=== PATIENT | female | born 1935 | race Caucasian/White ===

== ENCOUNTER → 2017-01-03 | Outpatient (CLI) | payer MEDICARE, OTHER ==
--- NOTE | 2017-01-04 08:54 | CT ---
EXAM DESCRIPTION: CT CHEST WITH IV CONTRAST CLINICAL HISTORY: PULMONARY NODULE COMPARISON: CTA neck October 11, 2016 TECHNIQUE: Post-contrast CT images of the chest are obtained. CT scan done according to ALARA (As Low As Reasonably Achievable). FINDINGS: The heart shows mild coronary artery calcifications. Mild scattered calcified plaque of the thoracic aortic arch and descending aorta are seen without aneurysmal dilatation or obvious dissection. No pathologically enlarged mediastinal, hilar, or axillary lymphadenopathy is seen. There are small calcified lymph nodes in the hilum bilaterally. Visualized portion of the upper abdomen shows calcifications in the liver and spleen. The adrenal glands are unremarkable. Fluid attenuation cortical cysts are incompletely visualized on both kidneys measuring maximum 1.8 cm on the upper pole left kidney. All lungs are normally aerated. Multiple small calcified pulmonary nodules are seen throughout the lungs. There is a 5 mm noncalcified pulmonary nodule in the right lung apex is seen on previous CT scan. There are multiple noncalcified pulmonary nodules in the lower chest measuring 9 mm in the anterior right middle lobe, 10 mm in the anterior mid left lower lobe, and 9 mm in the posterior left lung base. Several smaller noncalcified pulmonary nodules are seen throughout the lungs bilaterally. Osseous structures show no aggressive bony lesions. Moderate degenerative changes of the thoracic spine are seen. The focal nonspecific calcification below the left hemidiaphragm is seen measuring 18 mm. IMPRESSION: Multiple noncalcified pulmonary nodules are seen throughout the lungs measuring up to 10 mm greatest diameter. These are indeterminate, but concerning for possible metastatic disease. Consider tissue sampling of a nodule if possible. As per Fleischner Society guidelines for follow-up and management of pulmonary nodules: Recommend initial follow-up chest CT at 3, 9 and 24 months. Consider contrast enhanced chest CT, PET scan and/or biopsy as clinically warranted. Multiple calcified pulmonary nodules are seen suggesting old granulomatous disease. Other findings as described in body of the report. Electronically signed by: Joaquin Villalobos MD 01/04/2017 08:51
== END | disposition home or self-care (01) ==
LOC: CT 09:14
PROVIDERS: ATTEND Family Medicine
DX: R91.1 Solitary pulmonary nodule (principal)

== ENCOUNTER → 2017-01-11 | Outpatient (CLI) | payer MEDICARE, OTHER | LOC: GMAM 10:56 | PROVIDERS: ATTEND Family Medicine | DX: E03.9 Hypothyroidism, unspecified (principal); R31.29 Other microscopic hematuria; I10 Essential (primary) hypertension; E11.9 Type 2 diabetes mellitus without complications; E53.8 Deficiency of other specified B group vitamins ==

== ENCOUNTER → 2017-04-28 | Outpatient (CLI) | payer MEDICARE, OTHER | END | disposition home or self-care (01) | LOC: GMAM 10:34 | PROVIDERS: ATTEND Family Medicine | DX: E53.8 Deficiency of other specified B group vitamins (principal); I10 Essential (primary) hypertension; E03.9 Hypothyroidism, unspecified ==

== ENCOUNTER → 2017-05-24 | Outpatient (CLI) | payer MEDICARE, OTHER ==
--- NOTE | 2017-05-24 22:26 | MRI ---
MRI left shoulder without contrast INDICATION: Shoulder pain x1 week status post moving injury continuous pain initial encounter TECHNIQUE: Noncontrast MR imaging left shoulder standard protocol FINDINGS: There is interstitial fissuring and tendinosis with flattening and fraying long head bicep. No complete rupture or dislocation. There is tendinosis fissuring and fraying of the distal subscapularis without complete rupture or retraction. Moderate hypertrophic AC joint osteoarthrosis. No advanced glenohumeral arthrosis. There is diffuse labral fraying especially superiorly. There is also mild capsular thickening. There is diffuse moderate subacromial and subdeltoid bursitis. Minimal grade 1 marbling of the rotator cuff muscle bellies without advanced arthrosis. There is a focal full-thickness tear of the anterior supraspinatus near the rotator interval. The tear measures approximately 10 mm in AP dimension by about 11 mm in length. There is also mild interstitial delamination extending posteriorly and medially from this. IMPRESSION: Focal full-thickness tear anterior supraspinatus with mild retraction with mild interstitial delamination extending posteriorly and medially Tendinosis and interstitial fissuring of the subscapularis Interstitial fissuring and fraying long head bicep Subacromial and subdeltoid bursitis Moderate hypertrophic AC joint osteoarthrosis Diffuse labral degeneration and fraying especially superiorly without detachment of the biceps labral anchor No advanced muscle atrophy. Electronically signed by: Jose Perdue MD 05/24/2017 10:25 PM CDT
== END | disposition home or self-care (01) ==
LOC: MRI 08:53
PROVIDERS: ATTEND Family Medicine
DX: M25.512 Pain in left shoulder (principal)

== ENCOUNTER → 2017-07-18 | Outpatient (CLI) | payer MEDICARE, OTHER ==
--- NOTE | 2017-07-18 09:24 | CT ---
EXAM DESCRIPTION: Chest w/o Contrast CLINICAL HISTORY: 81 years, Female, MULTIPLE NODULES OF LUNG AND CHRONIC COUGH COMPARISON: January 03, 2017 TECHNIQUE: Thin-section noncontrast axial CT images are obtained according to our protocol. Reconstructed MPR images are created and reviewed as well. This exam was performed according to our departmental dose-optimization program, which includes automated exposure control, adjustment of the mA and/or kV according to patient size and/or use of iterative reconstruction technique. FINDINGS: Noncontrast imaging of the chest again demonstrates multiple bilateral pulmonary nodules that are stable and unchanged from previously study January 03, 2017. The nodules are noncalcified except for a tiny 2 mm left apical subpleural calcified nodule as well as granulomatous calcifications within the liver and adjacent to the spleen in a subdiaphragmatic location. The bilateral pulmonary nodules predominantly range between two and 8 mm in size with no new nodules are identified or significant interval enlargement in the 6 1/2 month interval since prior study. A tiny 2 mm calcified granuloma in the posterior right lung base is also noted. With the lack of interval change old granulomatous disease is most strongly suspected but with the multiple bilateral pulmonary nodules continued follow-up with repeat imaging in six additional months to confirm one year of stability with follow-up one year beyond that for two full years of stability is recommended. Soft tissue structures in the subdiaphragmatic region are unremarkable. A small retrocardiac hiatal hernia is present. The thoracic inlet and superior mediastinum are unremarkable. No definite hilar adenopathy is noted. Extensive aortic calcification is present with very little coronary calcification noted. IMPRESSION: 1. Stable multiple noncalcified bilateral discrete pulmonary nodules ranging between approximately two and 8 mm in size without increase in size or number since prior December study. At least one small 2 mm calcified tiny granuloma in each lung field is also noted as well as granulomatous calcifications within the liver and subdiaphragmatic regions. 2. With stability over a 6 1/2 month. Noncalcified granulomas are thought most likely but continued follow-up with repeat imaging in six additional months and one year after that to obtain 2 full years of stability recommended. 3. No abnormal soft tissue masses or new abnormalities noted. Electronically signed by: Josue Pierson MD 07/18/2017 9:23 AM CDT
== END | disposition home or self-care (01) ==
LOC: CT 08:09
PROVIDERS: ATTEND Internal Medicine
DX: J98.4 Other disorders of lung (principal)

== ENCOUNTER 2017-08-04 16:16 | Emergency (ER) | payer MEDICARE, OTHER ==
[2017-08-04 16:45] VITALS: BP 124/71; TEMP 98.9; O2SAT 96
--- NOTE | 2017-08-04 16:48 | ED.PDOC ---
History of Present Illness - General Chief Complaint: General Stated Complaint: fall Time Seen by Provider: 08/04/17 16:37 Source: patient Exam Limitations: no limitations - History of Present Illness Initial Comments: Monica Enriquez 81 y/o female stated that she fell while going up the steps last night and she had some pain on her left ribcage back and left shoulder stating she had rotator cuff tear and has chronic shoulder pain.Stated steps are narrow.Denies head ,neck ,hip pain.Patient was told by daughter to get checked. Occurred: yesterday Severity: mild Injuries/Pain Location: no injury, other - bearable pain Reason for Fall: lost balance Loss of Consciousness: no loss of consciousness Improving Factors: nothing Worsening Factors: nothing Associated Symptoms (Fall): denies symptoms Allergies/Adverse Reactions: Allergies Meperidine [From Demerol HCl] Allergy (Verified 08/04/17 16:45) Sulfa Antibiotics Allergy (Verified 08/04/17 16:45) Home Medications: Ambulatory Orders Aspirin [Aspirin Adult Low Dose] 81 mg PO DAILY 08/04/17 Esomeprazole Magnesium [Nexium] 40 mg PO DAILY 08/04/17 Ezetimibe-Simvastatin [Vytorin 10-80 mg] 1 tab PO DAILY 08/04/17 Glipizide 5 mg PO DAILY 08/04/17 Insulin Glargine [Lantus Solostar] 45 unit SC BEDTIME 08/04/17 Levothyroxine Sodium [Synthroid] 137 mcg PO DAILY 08/04/17 Metformin HCl 1,000 mg PO DAILY 08/04/17 Metformin HCl 500 mg PO BEDTIME 08/04/17 Metoprolol Tartrate 25 mg PO BID 08/04/17 Review of Systems - Review of Systems Constitutional: States: no symptoms reported EENTM: States: no symptoms reported Respiratory: States: see HPI Cardiology: States: no symptoms reported Gastrointestinal/Abdominal: States: no symptoms reported Musculoskeletal: States: see HPI Skin: States: no symptoms reported Past Medical History (General) - Patient Medical History Hx MRSA: Yes - Buttock Wound 2013, Genital Wound 2014 MRSA Source:: Wound - Social History Hx Physical Abuse: No Hx Emotional Abuse: No Hx Suspected Abuse: No - Activities of Daily Living Patient Lives Alone: Yes Grooming Ability: Independent Eating (Feeding) Ability: Independent Toileting Ability: Independent Physical Exam - Physical Exam General Appearance: Alert, No apparent distress Head Injury: no evidence of injury Eye Exam: bilateral normal ENT Exam: hearing grossly normal, no evidence of ENT injury, no dental injury Peripheral Pulses: radial,right: 1+, radial,left: 1+ Cardiovascular/Respiratory: regular rate, rhythm, normal peripheral pulses, normal breath sounds, no respiratory distress, other - no chest wall tenderness Gastrointestinal/Abdominal: non tender, soft, no organomegaly Extremity Exam: no evidence of injury, normal range of motion - left shoulder rom full flexion /extension and internal/external rotation Neurologic: no motor/sensory deficits, alert, normal mood/affect, oriented x 3 Skin Exam: normal color, warm/dry, other - no signs of external injuries - David Coma Score Best Eye Response (David): (4) open spontaneously Best Verbal Response ([place]): (5) oriented Best Motor Response (David): (6) obeys commands [place] Total: 15 Progress - Progress Progress: 08/04/17 16:59 Vital Signs - 8 hr 08/04/17 16:40 Temperature 98.9 F Pulse Rate [ 81 Left Brachial] Respiratory 20 Rate Blood Pressure 124/71 [Left Arm] O2 Sat by Pulse 96 Oximetry Departure - Departure Clinical Impression: Fall (on) (from) other stairs and steps, initial encounter, Pain of left upper extremity Time of Disposition: 17:01 Disposition: Discharge to Home or Self Care Condition: Fair Instructions: How to Prevent Falls, Milad Chi May Improve Physical Function, Reduce Falls Referrals: Josue Anderson MD [Primary Care Provider] - 1-2 Weeks Home Medications: Ambulatory Orders Aspirin [Aspirin Adult Low Dose] 81 mg PO DAILY 08/04/17 Esomeprazole Magnesium [Nexium] 40 mg PO DAILY 08/04/17 Ezetimibe-Simvastatin [Vytorin 10-80 mg] 1 tab PO DAILY 08/04/17 Glipizide 5 mg PO DAILY 08/04/17 Insulin Glargine [Lantus Solostar] 45 unit SC BEDTIME 08/04/17 Levothyroxine Sodium [Synthroid] 137 mcg PO DAILY 08/04/17 Metformin HCl 1,000 mg PO DAILY 08/04/17 Metformin HCl 500 mg PO BEDTIME 08/04/17 Metoprolol Tartrate 25 mg PO BID 08/04/17 Additional Instructions: Tylenol 500 mg (over the counter) one tablet by mouth 3 x a day as needed for pain;RETURN TO EMERGENCY ROOM NEEDED
== END 2017-08-04 17:10 | disposition home or self-care (01) ==
LOC: ER 16:16
DX: M25.512 Pain in left shoulder (principal); G89.29 Other chronic pain; Z86.14 Personal history of Methicillin resistant Staphylococcus aureus infection; Z79.4 Long term (current) use of insulin; Z79.82 Long term (current) use of aspirin; Z88.2 Allergy status to sulfonamides; Z88.8 Allergy status to other drugs, medicaments and biological substances

== ENCOUNTER → 2017-08-18 | Outpatient (CLI) | payer MEDICARE, OTHER | END | disposition home or self-care (01) | LOC: GMAM 14:14 | PROVIDERS: ATTEND Family Medicine | DX: E53.8 Deficiency of other specified B group vitamins (principal); E11.9 Type 2 diabetes mellitus without complications; I10 Essential (primary) hypertension; E03.9 Hypothyroidism, unspecified ==

== ENCOUNTER → 2017-12-20 | Outpatient (CLI) | payer MEDICARE, OTHER | LOC: GMAM 14:46 | PROVIDERS: ATTEND Family Medicine | DX: E03.9 Hypothyroidism, unspecified (principal); E53.8 Deficiency of other specified B group vitamins ==

== ENCOUNTER → 2018-04-26 | Outpatient (CLI) | payer MEDICARE, OTHER | LOC: GMAM 10:35 | PROVIDERS: ATTEND Family Medicine | DX: E53.8 Deficiency of other specified B group vitamins (principal); E03.9 Hypothyroidism, unspecified ==

== ENCOUNTER → 2018-07-27 | Outpatient (CLI) | payer MEDICARE, OTHER ==
--- NOTE | 2018-07-27 16:29 | CT ---
EXAM DESCRIPTION: Chest w/o Contrast : Computed Tomography. CLINICAL HISTORY: CHRONIC COUGH following pulmonary nodules. COMPARISON: CT scan of the chest and thorax without IV contrast 07/18/2017. TECHNIQUE: Spiral-axial scans at 5.0 x 5.0 mm intervals through the lungs and thorax without IV contrast. 2.5 mm lung algorithm axial reconstructions. Coronal and sagittal 2.0 Mm reconstructions. Total Exam DLP: 502.41 mGy-cm. This exam was performed according to our departmental dose-optimization program which includes automated exposure control, adjustment of the mA and/or kV according to patient size and/or use of iterative reconstruction technique; to reduce radiation dose to as low as reasonably achievable (ALARA). FINDINGS: Nodule in the anterior aspect of the base of the right lower lobe with mean diameter 7 mm and lobulated and partially spiculated margins. Axial sequence 4, images 68-70. 4 smaller nodules posterior and superior to this nodule in the subpleural region, images 65-67. The nodules are stable in size since the prior study. Other nodules approximately 2 mm diameter are present in the subpleural lateral lower lobe. 7 mm nodules with lobulated and spiculated margins can be seen on images 89-92 in the lower left lobe recess. These are also stable. Subpleural nodules less than 4 mm mean diameter are seen in several locations in the right lower lobe and are stable since the prior study. The largest is on image 83. 5 mm solid subpleural nodule in the medial right apex on image 16 is stable. Contralateral calcified subpleural nodule lateral left upper lobe on image 19 is unchanged. Stable subpleural solid nodule posterior right upper lobe on image 27, less than 4 mm diameter. 8 mm mean diameter solid nodule with smooth lobulated and spiculated margins in the subpleural anterior right middle lobe on image 54 through 56 is unchanged. Bilateral apical pleural thickening. 2.5 mm solid nodule in the posterior left upper lobe near the major fissure on image 35 is stable. Other smaller subpleural solid nodules in the left upper lobe are stable. Evaluation of soft tissues limited due to lack of IV contrast. Atherosclerotic calcifications of the great vessels. Coronary artery calcifications. No large soft tissue masses mediastinum or hilum. No chest wall masses axilla and chest wall. Normal size and density of adrenal glands spleen are stable large calcification lateral left diaphragm. Arterial calcifications. Gallbladder partially visualized. No free fluid or free air in the peritoneum. At least 3 cystic lesions partially visualized in the left kidney and 2 on the right. Schmorl's node in the superior T10 endplate and spondylosis in the T9-10 disc space has developed since the prior study with bilateral foraminal narrowing. No lytic or blastic lesions in the included osseous structures. IMPRESSION: 1. Bilateral stable nodular lesions and calcified granulomas in the lung walsh. Stability over 12 month.. No new nodules masses or infiltrates. Considering 2017 Fleischner Society guidelines for multiple nodules, recommend 12-[address] scan follow-up. Please see below.* 2. Stable soft tissues in the chest and upper abdomen. Bilateral renal cysts again noted. *2017 Fleischner Society Recommendations for Multiple Solid Lung Nodules Follow-Up base on size (average of long- and short-axis diameters). Use most suspicious nodule for followup. Nodule Size <6 mm Low-Risk Patient: No routine follow-up Nodule Size <6 mm High-Risk Patient: Optional CT at 12 months Nodule Size 6-8 mm Low-Risk Patient: CT at 3-[address] at 18-24 months Nodule Size 6-8 mm High-Risk Patient: CT at 3-6 months then at 18-24 months Electronically signed by: Fish Sharma MD 07/27/2018 4:27 PM CDT
== END ==
LOC: CT 10:00
PROVIDERS: ATTEND Nurse Practitioner Family
DX: J30.9 Allergic rhinitis, unspecified (principal); J98.4 Other disorders of lung; R05 Cough

== ENCOUNTER → 2018-07-31 | Outpatient (CLI) | payer MEDICARE, OTHER | LOC: GMAM 14:15 | PROVIDERS: ATTEND Family Medicine | DX: E53.8 Deficiency of other specified B group vitamins (principal); E03.9 Hypothyroidism, unspecified ==

== ENCOUNTER → 2018-11-08 | Outpatient (CLI) | payer MEDICARE, OTHER | LOC: GMAM 12:10 | PROVIDERS: ATTEND Family Medicine | DX: E53.8 Deficiency of other specified B group vitamins (principal); E03.9 Hypothyroidism, unspecified ==

== ENCOUNTER → 2018-12-14 | Outpatient (CLI) | payer MEDICARE, OTHER | LOC: GMAM 11:02 | PROVIDERS: ATTEND Family Medicine | DX: E03.9 Hypothyroidism, unspecified (principal) ==

== ENCOUNTER → 2019-06-21 | Outpatient (CLI) | payer MEDICARE, OTHER | LOC: GMAM 10:28 | PROVIDERS: ATTEND Family Medicine | DX: E53.8 Deficiency of other specified B group vitamins (principal); E03.9 Hypothyroidism, unspecified; I10 Essential (primary) hypertension; E11.9 Type 2 diabetes mellitus without complications ==

== ENCOUNTER → 2019-07-25 | Outpatient (CLI) | payer MEDICARE, OTHER ==
--- NOTE | 2019-07-26 07:43 | CT ---
EXAM DESCRIPTION: Chest w/o Contrast CLINICAL HISTORY: 83 years Female, MULTIPLE LUNG NODULES COUGH TECHNIQUE: This exam was performed according to our departmental dose-optimization program, which includes automated exposure control, adjustment of the mA and/or kV according to patient size and/or use of iterative reconstruction technique. COMPARISON: 07/27/2018 FINDINGS: No axillary adenopathy. Atherosclerotic plaque in the normal caliber thoracic aorta. Coronary artery and aortic valvular calcifications. No significant pericardial effusion. Bilateral renal cysts. Calcified granulomas present within the liver. No mediastinal adenopathy. No pneumothorax. No pleural effusion. There are scattered calcified granulomas, stable. All of the identified solid noncalcified pulmonary nodules are stable in size, morphology and solid component dating back at least January 03, 2017 indicative of a benign etiology. There is no suspicious pulmonary nodule identified. No focal consolidation. No new pulmonary nodule. No acute or suspicious osseous abnormality. Scattered degenerative changes present. IMPRESSION: 1. No evidence of acute process in the chest. 2. Stable benign pulmonary nodules. No new pulmonary nodule identified. Electronically signed by: Justice Yen MD 07/26/2019 7:41 AM CDT
== END ==
LOC: CT 10:13
PROVIDERS: ATTEND Internal Medicine
DX: J98.4 Other disorders of lung (principal); R91.8 Other nonspecific abnormal finding of lung field

== ENCOUNTER 2020-02-28 16:12 | Emergency (ER) | payer MEDICARE, OTHER ==
[2020-02-28] MEDS ORDERED: SODIUM CHLORIDE 0.9% (FLUSH) 10 ML SYG IV PRN (16:13)
--- NOTE | 2020-02-28 16:15 | ED.PDOC ---
History of Present Illness - General Time Seen by Provider: 02/28/20 16:13 Source: patient, family - History of Present Illness Initial Comments: 84 yo female with PMH of HTN, DM2, hypothyroidism who is bib granddaughter for cc of palpitations and elevated heart rate. Reports onset approx 4:15 pm at home while sitting. States she could suddenly feel her heart beat rapidly in her chest - reported also moderate dyspnea with the episode. Her GD checked her pulse which was >150 so she brought her straight to the ED. Pt reports sx's lasted approx 10 mins and resolved spontaneously just prior to ED arrival. Now feels back to normal. Denies any chest pain, cough, fevers, chills, abd pain, n/v/d, urinary burning. Reports similar episode of palpitations a few days ago. States she was recently switched from Micardis 80 mg once daily to Valsartan 160 mg once daily. Also takes Synthroid 137 mcg daily for hypothyroidism. PCP is Dr. Anderson. Allergies/Adverse Reactions: Allergies Meperidine [From Demerol HCl] Allergy (Verified 08/04/17 16:45) Sulfa Antibiotics Allergy (Verified 08/04/17 16:45) Home Medications: Ambulatory Orders Aspirin [Aspirin Adult Low Dose] 81 mg PO DAILY 08/04/17 Esomeprazole Magnesium [Nexium] 20 mg PO DAILY 08/04/17 Ezetimibe-Simvastatin [Vytorin 10-80 mg] 1 tab PO BEDTIME 08/04/17 Levothyroxine Sodium [Synthroid] 137 mcg PO DAILY 08/04/17 RX: Metformin HCl [Metformin Hydrochloride] 500 mg PO BID 08/04/17 RX: Metoprolol Tartrate 25 mg PO BID 08/04/17 Albuterol Sulfate [Proair Hfa] 1 inh IN PRN 02/28/20 Cyanocobalamin Inj [Vitamin B-12 Inj] 1,000 mcg IM MONTHLY 02/28/20 Insulin Glargine [Basaglar Kwikpen] 42 unit SC BEDTIME 02/28/20 Krill Oil [[place]-3 Krill Oil 1000 mg] 1 cap PO DAILY 02/28/20 RX: Meloxicam 7.5 mg PO BID 02/28/20 RX: Valsartan 160 mg PO DAILY 02/28/20 Review of Systems - Review of Systems Review of Systems: 02/28/20 18:04 as per HPI All other Systems: Reviewed and Negative Past Medical History (General) - Patient Medical History Hx Congestive Heart Failure: No Hx Diabetes: Yes Hx MRSA: Yes - Buttock Wound 2013, Genital Wound 2014 MRSA Source:: Wound - Vaccination History Hx Influenza Vaccination: No Hx Pneumococcal Vaccination: Yes - Social History Hx Tobacco Use: Yes Hx Physical Abuse: No Hx Emotional Abuse: No Hx Suspected Abuse: No Family Medical History - Family History Mother Family History: Unknown Living Status: Physical Exam - Physical Exam General Appearance: Alert, Comfortable, No apparent distress Eye Exam: bilateral normal Ears, Nose, Throat: hearing grossly normal, normal ENT inspection, normal pharynx Neck: non-tender, full range of motion, supple, normal inspection Respiratory: chest non-tender, lungs clear, normal breath sounds, no respiratory distress, no accessory muscle use Cardiovascular/Chest: normal peripheral pulses, regular rate, rhythm, no edema, no gallop, no JVD, no murmur Peripheral Pulses: radial,right: 2+, radial,left: 2+ Gastrointestinal/Abdominal: non tender, soft, no organomegaly Back Exam: normal inspection, no CVA tenderness, no vertebral tenderness Extremity: normal range of motion, non-tender, normal inspection, no pedal edema, no calf tenderness, normal capillary refill Neurologic: box truck washer II-XII nml as tested, no motor/sensory deficits, alert, normal mood/affect, oriented x 3 Skin Exam: normal color, warm/dry Progress - Progress Progress: 02/28/20 16:45 Palpitations -per pt & GD, appears to be 2/2 tachycardic arrhythmia. Consider SVT's, a-fib, a-flutter, hyperthyroidism, iatrogenic. Consider also anxiety, electrolyte derangement, infection, ACS, CHF, other -obtain labs, cardiac work-up, TSH, Mg 02/28/20 18:08 -Labs reveal markedly low TSH <0.06 concerning for hyperthyroidism - suspect this may be causing her to go into tachyarrhythmias, possibly SVT's. However, pt has been in normal sinus rhythm since arrival. CXR clear, remainder of work- up unremarkable. Will touch base with her PCP to determine further dispo and treatment plan. 02/28/20 19:12 -Dr. Anderson asked for reflex Free T4 level, which came back slightly elevated. I offered to admit the patient but she declines - states she really would rather go home. Dr. Anderson is ok with this plan - he states for her to hold Synthroid tomorrow and resume on Monday. Will arrange for outpatient Holter monitor x14 days. Pt to f/u in 3 days in clinic with Dr. Anderson. Dc home in good condition, return warnings discussed at length. Basim Wang MD Billing #[id number] 02/28/20 16:13 Telemetry .ONCE Sodium Chloride 0.9% (Flush) [Saline Flush Syringe] 10 ml IV PRN PRN Pulse Oximetry Assessment DAILY 02/28/20 16:15 EKG STAT 02/29/20 09:00 Pulse Ox Daily Laboratory Results - last 24 hr 02/28/20 02/28/20 02/28/20 14:47 16:34 16:34 WBC 7.7 RBC 5.06 Hgb 12.5 Hct 37.9 MCV 74.9 L MCH 24.8 L MCHC 33.1 RDW 15.9 H Plt Count 233 MPV 8.6 Absolute Neuts (auto) 5.40 Absolute Lymphs (auto) 1.40 Absolute Monos (auto) 0.50 Absolute Eos (auto) 0.30 Absolute Basos (auto) 0.10 Neutrophils % 70.5 Lymphocytes % 17.8 L Monocytes % 6.9 Eosinophils % 3.5 Basophils % 1.3 PT 10.2 INR 1.03 PTT (SP) 23.8 Sodium Potassium Chloride Carbon Dioxide Anion Gap BUN Creatinine BUN/Creatinine Ratio Random Glucose Serum Osmolality Calcium Magnesium Total Bilirubin AST ALT Alkaline Phosphatase B-Natriuretic Peptide Serum Total Protein Albumin Globulin Albumin/Globulin Ratio TSH Free T4 1.38 H Thyroxine (T4) Free T3 pg/mL Urine Color Urine Appearance Urine pH Ur Specific [place] Urine Protein Urine Glucose (UA) Urine Ketones Urine Blood Urine Nitrite Urine Bilirubin Urine Urobilinogen Ur Leukocyte Esterase Urine RBC Urine WBC Ur Epithelial Cells Urine Bacteria 02/28/20 02/28/20 02/28/20 16:34 16:34 16:34 WBC RBC Hgb Hct MCV MCH MCHC RDW Plt Count MPV Absolute Neuts (auto) Absolute Lymphs (auto) Absolute Monos (auto) Absolute Eos (auto) Absolute Basos (auto) Neutrophils % Lymphocytes % Monocytes % Eosinophils % Basophils % PT INR PTT (SP) Sodium 141 Potassium 4.2 Chloride 105 Carbon Dioxide 26 Anion Gap 14.2 BUN 25 H Creatinine 1.44 H BUN/Creatinine Ratio 17.4 Random Glucose 206 H Serum Osmolality 291.6 Calcium 9.2 Magnesium 2.0 Total Bilirubin 0.4 AST 23 ALT 16 Alkaline Phosphatase 65 B-Natriuretic Peptide 81.2 Serum Total Protein 7.5 Albumin 4.1 Globulin 3.4 Albumin/Globulin Ratio 1.2 TSH < 0.06 L Free T4 Thyroxine (T4) Free T3 pg/mL 2.67 Urine Color Urine Appearance Urine pH Ur Specific [place] Urine Protein Urine Glucose (UA) Urine Ketones Urine Blood Urine Nitrite Urine Bilirubin Urine Urobilinogen Ur Leukocyte Esterase Urine RBC Urine WBC Ur Epithelial Cells Urine Bacteria 02/28/20 02/28/20 16:34 17:01 WBC RBC Hgb Hct MCV MCH MCHC RDW Plt Count MPV Absolute Neuts (auto) Absolute Lymphs (auto) Absolute Monos (auto) Absolute Eos (auto) Absolute Basos (auto) Neutrophils % Lymphocytes % Monocytes % Eosinophils % Basophils % PT INR PTT (SP) Sodium Potassium Chloride Carbon Dioxide Anion Gap BUN Creatinine BUN/Creatinine Ratio Random Glucose Serum Osmolality Calcium Magnesium Total Bilirubin AST ALT Alkaline Phosphatase B-Natriuretic Peptide Serum Total Protein Albumin Globulin Albumin/Globulin Ratio TSH Free T4 Thyroxine (T4) 12.45 H Free T3 pg/mL Urine Color Yellow Urine Appearance Clear Urine pH 7.0 Ur Specific [place] 1.015 Urine Protein Negative Urine Glucose (UA) 100 H Urine Ketones Negative Urine Blood Trace-lysed H Urine Nitrite Negative Urine Bilirubin Negative Urine Urobilinogen 0.2 Ur Leukocyte Esterase Negative Urine RBC 0-1 Urine WBC 0 Ur Epithelial Cells 0-1 Urine Bacteria 0 - EKG/XRAY/CT EKG: Sinus - NSR, HR 90, no ST elevs or q waves, axis normal, CA interval prolonged 220 msecs, intervals otherwise normal, no prior EKG for comparison XRAY: chest - no acute processes per my read Departure - Departure Clinical Impression: Palpitations, Hyperthyroidism Time of Disposition: 18:35 Disposition: Discharge to Home or Self Care Condition: Good Departure Forms: ED Discharge - Pt. Copy, Patient Portal Self Enrollment Instructions: Palpitations (DC) Diet: resume usual diet Activity: increase activity as tolerated Referrals: Josue Anderson MD [Primary Care Provider] - 1-5 Days Home Medications: Ambulatory Orders Aspirin [Aspirin Adult Low Dose] 81 mg PO DAILY 09/22/17 Esomeprazole Magnesium [Nexium] 20 mg PO DAILY 08/04/17 Ezetimibe-Simvastatin [Vytorin 10-80 mg] 1 tab PO BEDTIME 08/04/17 Levothyroxine Sodium [Synthroid] 137 mcg PO DAILY 08/04/17 RX: Metformin HCl [Metformin Hydrochloride] 500 mg PO BID 08/04/17 RX: Metoprolol Tartrate 25 mg PO BID 08/04/17 Albuterol Sulfate [Proair Hfa] 1 inh IN PRN 02/28/20 Cyanocobalamin Inj [Vitamin B-12 Inj] 1,000 mcg IM MONTHLY 02/28/20 Insulin Glargine [Basaglar Kwikpen] 42 unit SC BEDTIME 02/28/20 Krill Oil [[place]-3 Krill Oil 1000 mg] 1 cap PO DAILY 02/28/20 RX: Meloxicam 7.5 mg PO BID 02/28/20 RX: Valsartan 160 mg PO DAILY 02/28/20 Additional Instructions: Decrease your Synthroid (thyroid medication) as instructed. Remain well- hydrated and avoid excess caffeinated beverages or energy drinks. Call Dr. Anderson's clinic on Monday morning to arrange a follow-up appointment. Return if symptoms return or worsen or other concerning symptoms develop such as chest pain, shortness of breath, loss of consciousness, etc...
[2020-02-28 16:34] VITALS: O2SAT 96
--- NOTE | 2020-02-28 17:23 | RAD ---
EXAM DESCRIPTION: XR Chest, 1 View CLINICAL HISTORY: 84 years Female palpitations TECHNIQUE: One view of the chest. COMPARISON: Correlation is made with the CT scan dated FINDINGS: The lungs are clear without focal consolidation, effusion, or pneumothorax. Stable oval radiodensity under the left lateral hemidiaphragm, benign appearance. The cardiomediastinal silhouette and central pulmonary vasculature are normal. No acute osseous abnormalities. IMPRESSION: No acute cardiopulmonary abnormalities. Electronically signed by: Marilee Verduzco MD 02/28/2020 5:22 PM CDT
[2020-02-28 20:14] VITALS: BP 179/81; TEMP 98
== END 2020-02-28 19:30 | disposition home or self-care (01) ==
LOC: ER 16:12
DX: R00.2 Palpitations (principal); E05.90 Thyrotoxicosis, unspecified without thyrotoxic crisis or storm; I10 Essential (primary) hypertension; E11.9 Type 2 diabetes mellitus without complications; E03.9 Hypothyroidism, unspecified; Z87.891 Personal history of nicotine dependence; Z79.899 Other long term (current) drug therapy

== ENCOUNTER → 2020-04-02 | Outpatient (CLI) | payer MEDICARE, OTHER ==
--- NOTE | 2020-04-02 13:21 | MRI ---
EXAM DESCRIPTION: Lumbar Spine w/o Contrast CLINICAL HISTORY: RADICULOPATHY LUMBOSACRAL REGION COMPARISON: None. TECHNIQUE: Multiplanar, multisequence MRI of the lumbar spine was performed without contrast. FINDINGS: Lumbar vertebral body heights are maintained without acute compression fracture deformity. Straightening of the normal lumbar lordosis is seen. Moderate curvature of the upper lumbar spine with convexity towards the left is seen with mild curvature of the lower lumbar spine and convexity towards the right. Clockwise rotation of the upper lumbar spine is seen. Desiccation of the disc spaces throughout the lumbar spine. Anterior disc bulging and hypertrophic marginal endplate osteophytes from L1 through S1. Conus medullaris terminates at T12-L1 and is unremarkable. Multiple fluid signal cortical cysts are seen on both kidneys measuring maximum 2.6 cm on the left and 4.3 cm on the right. The cysts are incompletely included in the [id number]. Consider further evaluation with nonemergent ultrasound imaging.. L1-2 Moderate to severe disc space narrowing asymmetric towards the right with endplate irregularity and bony hypertrophy. Moderate Modic type I and II degenerative endplate signal changes towards the right are seen. Broad-based mostly disc bulge eccentric towards the right extends maximum 6 mm beyond the endplate margin. Mild facet hypertrophic and degenerative changes with ligamentum flavum thickening. Mild spinal canal stenosis. Moderate right lateral recess encroachment. Severe right and mild left foraminal encroachment is seen with loss of normal fat signal from around the exiting right L1 nerve root. L2-3 Moderate to severe disc space narrowing asymmetric towards the right. 4 mm retrolisthesis of L2 on L3 and uncovering the disc. Moderate facet hypertrophic and degenerative changes with ligamentum flavum thickening and mild posterior epidural lipomatosis. Decreased CSF signal from around the nerve roots in the thecal sac measures 6 mm AP by 9 mm transverse compatible with moderate spinal canal stenosis. At least moderate bilateral lateral recess encroachment is seen with moderate bilateral foraminal encroachment. L3-4 Severe disc space narrowing. Mild endplate irregularity. 4 mm posterior circumferential ridging disc osteophyte complex. Moderate facet hypertrophic and degenerative changes with ligamentum flavum thickening. Medial left facet joint synovial cyst measures 5 x 3 mm. Moderate to severe spinal canal stenosis. The thecal sac measures 4 mm AP by 7 mm transverse. Severe left lateral recess encroachment. Severe left and mild right foraminal encroachment. Mild increased T2 signal in the paraspinal musculature on the left at this level suggests strain or sprain. L4-5 Moderate diffuse disc space narrowing asymmetric towards the left. Moderate facet hypertrophic and degenerative changes with ligamentum flavum thickening. Mild spinal canal stenosis. Severe left and moderate right foraminal encroachment. Loss of fat signal from around the exiting left L4 nerve root. L5-S1 Trace anterolisthesis of L5 on S1. Mild diffuse disc space narrowing. Severe left greater than right facet hypertrophic and degenerative changes with mild ligamentum flavum thickening. Small right facet joint effusion. Mild bilateral lateral recess encroachment. Mild bilateral foraminal encroachment. IMPRESSION: Moderate to severe disc degenerative disease and facet arthropathy of the lumbar spine with moderate scoliosis of the spine. Multifactorial moderate to severe spinal canal stenosis is seen at L2-3 and L3-4. Multilevel foraminal encroachment is seen as described level by level above most significant from L1 through L3 on the right and L3-L5 on the left. Electronically signed by: Joaquin Villalobos MD 04/02/2020 1:20 PM CDT
== END ==
LOC: MRI 11:00
PROVIDERS: ATTEND Family Medicine
DX: M54.17 Radiculopathy, lumbosacral region (principal); M48.061 Spinal stenosis, lumbar region without neurogenic claudication; M51.36 Other intervertebral disc degeneration, lumbar region; M46.96 Unspecified inflammatory spondylopathy, lumbar region; M41.86 Other forms of scoliosis, lumbar region

== ENCOUNTER → 2020-08-20 | Outpatient (CLI) | payer MEDICARE, OTHER | LOC: GMAM 14:18 | PROVIDERS: ATTEND Family Medicine | DX: M15.0 Primary generalized (osteo)arthritis (principal); M32.10 Systemic lupus erythematosus, organ or system involvement unspecified; M10.9 Gout, unspecified ==

== ENCOUNTER → 2020-09-22 | Outpatient (CLI) | payer MEDICARE, OTHER | LOC: GMAM 15:02 | PROVIDERS: ATTEND Family Medicine | DX: E53.8 Deficiency of other specified B group vitamins (principal); E03.9 Hypothyroidism, unspecified; M10.9 Gout, unspecified; I10 Essential (primary) hypertension; E11.9 Type 2 diabetes mellitus without complications; E78.2 Mixed hyperlipidemia ==

== ENCOUNTER → 2020-09-29 | Outpatient (CLI) | payer MEDICARE, OTHER ==
--- NOTE | 2020-09-30 13:09 | MAM ---
EXAM DESCRIPTION: 3D Screening BILATERAL : Digital Mammography. CLINICAL HISTORY: 84 years Female SCREENING . No complaints. No family history of breast cancer. Menarche age 12. Childbirth age 19. Menopause age with hysterectomy unknown. No HRT. Lifetime risk of developing breast cancer (Tyrer-Cuzick model)(%): 1.1. COMPARISON: Bilateral screening digital breast 2-D imaging September 2016. TECHNIQUE: Bilateral CC and MLO projection full-field images digital tomosynthesis mammographic technique. Bilateral digital 2-D full-field MLO images. CAD available for 2-D images. FINDINGS: The breast parenchymal density pattern is: Scattered areas of fibroglandular density. No skin thickening or nipple retraction. Axillary nodes. Vascular calcifications. Skin mole markers. No new focal, stellate mass or density, focal asymmetry , and no suspicious microcalcifications bilaterally. Stable mammograms compared to prior study. Taking into account, differences in mammographic technique. IMPRESSION: Benign exam. BIRAD CATEGORY: 2 BENIGN FINDINGS. RECOMMENDATIONS: FOLLOW UP: Routine digital bilateral mammographic screening, one year interval from September 2020. Written communication explaining the IMPRESSION and follow-up, will be mailed to the patient and referring health care provider. According to the [employer], yearly mammograms are recommended starting at age 40 and continuing as long as a woman is in good health. Any breast change noted on a breast self-exam should be reported promptly to the patient's healthcare provider. Breast MRI is recommended for women with an approximately 20-25% or greater lifetime risk of breast cancer, including women with a strong family history of breast or ovarian cancer and women who have been treated for Hodgkin's disease. A negative mammographic report should not delay tissue diagnosis in patients with significant clinical history or physical findings. Extremely dense breast tissue limits the sensitivity of digital mammography. Electronically signed by: Fish Sharma MD 09/30/2020 1:08 PM [employer]
== END ==
LOC: MAMMO 10:00
PROVIDERS: ATTEND Family Medicine
DX: Z12.31 Encounter for screening mammogram for malignant neoplasm of breast (principal)